=== PATIENT | female | born 1990 | race Caucasian/White ===

== ENCOUNTER 2018-10-21 13:04 | Emergency (ER) | payer OTHER ==
[~2018-10-21] VITALS: Ht 165.1 cm; Wt 96.2 kg
[2018-10-21 13:10] VITALS: BP 114/62
--- NOTE | 2018-10-21 13:35 | NUR ---
BIB SELF, C/O LOWER ABD AND VAGINAL DISCOMFORT. PT STATES SHE WAS EXPOSED TO [place] X1 MONTH AGO. PAIN 0/10. DENIES VAGINAL BLEEDING OR DISCHARGE. DENIES N/V. MILD DIARRHEA [id number]. DENIES BLOOD IN STOOL OR URINE. URINE IS YELLOW AND CLEAR. LMP 18. PT STATES TO HAVE HAD A FEVER LAST NIGHT. NO FEVER PRESENT AT THIS TIME. ER DR MADE AWARE OF PT STATUS. PT IN BED IN GOWN; BED IN LOWER LOCKED POSITION; BEDRAILS UP X1. HX: DENIES RX: DENIES
[2018-10-21] MEDS ORDERED: cefTRIAXone 250 MG VIAL ONE (13:49)
[2018-10-21 13:59] LABS: APPEARANCE,URINE SL CLOUDY (CLEAR); BILIRUBIN,URINE NEGATIVE (NEGATIVE); BLOOD, URINE NEGATIVE (NEGATIVE); COLOR,URINE YELLOW (YELLOW); LEUKOCYTE ESTERASE ,URINE TRACE (NEGATIVE); NITRITE, URINE NEGATIVE (NEGATIVE); UGLUCOSE NEGATIVE (NEGATIVE)
[2018-10-21 14:26] LABS: RBC,URINE NONE SEEN /HPF (0-5); WBC,URINE 0-5 (RARE) /HPF (0-5)
[2018-10-21 15:16] VITALS: BP 118/71
--- NOTE | 2018-10-21 15:16 | NUR ---
Patient discharged with v/s stable. Written and verbal after care instructions given and explained. Patient alert, oriented and verbalized understanding of instructions. Ambulatory with steady gait. All questions addressed prior to discharge. ID band removed. Patient advised to follow up with PMD. Rx of TESSALON, DOXYCYCLINE & CLARITIN-D given. Patient educated on indication of medication including possible reaction and side effects. Opportunity to ask questions provided and answered.
[2018-10-23 06:18] LABS: CHLAMYDIA TRACHOMATIS AMP DNA Negative (Negative)
== END 2018-10-21 15:16 | disposition home or self-care (01) ==
LOC: MED 13:04
DX: B34.9 Viral infection, unspecified (principal); A74.9 Chlamydial infection, unspecified
CPT/HCPCS: 36415; 81001; 81025; 87491; 87804; 96365; 99283; J0696; J7060

== ENCOUNTER 2020-03-16 06:35 | Inpatient (IN) | payer OTHER ==
[~2020-03-16] VITALS: Ht 165.1 cm; Wt 108.9 kg
[2020-03-16] MEDS ORDERED: LACTATED RINGERS 1,000 ML IV SCH (06:56)
[2020-03-16] MEDS ORDERED: PROMETHAZINE 25 MG/ML VIAL IVP PRN (07:00)
[2020-03-16] MEDS ORDERED: fentaNYL 0.05 MG/ML VIAL ONE (07:03)
[2020-03-16] MEDS ORDERED: OXYTOCIN 20 UNITS/LR PREMIX 1,000 ML IV ONE (07:03)
[2020-03-16] MEDS ORDERED: LIDOCAINE 1% 500 MG/50 ML VIAL ONE (07:04)
[2020-03-16] MEDS ORDERED: fentaNYL 0.05 MG/ML VIAL IVP ONE (07:05)
[2020-03-16] MEDS ORDERED: OXYTOCIN 20 UNITS in LACTATED RINGERS 1,000 ML IV SCH (07:05)
[2020-03-16] MEDS ORDERED: LIDOCAINE MPF 1% 10 MG/ML VIAL INJ SCH (07:05)
[2020-03-16] MEDS ORDERED: oxyCODONE/APAP 5/325 MG 1 TAB TAB PO PRN (07:20)
[2020-03-16] MEDS ORDERED: SODIUM PHOSPHATE 118 ML ENEM RC PRN (07:20)
[2020-03-16] MEDS ORDERED: METHYLERGONOVINE 0.2 MG/ML AMP IM PRN (07:20)
[2020-03-16] MEDS ORDERED: OXYTOCIN 10 UNITS/ML VIAL IM PRN (07:20)
[2020-03-16] MEDS ORDERED: HYDROcodone/APAP 5/325 MG 1 TAB TAB PO PRN (07:20)
[2020-03-16] MEDS ORDERED: METHYLERGONOVINE 0.2 MG TAB PO PRN (07:20)
[2020-03-16] MEDS ORDERED: TEMAZEPAM 15 MG CAP PO PRN (07:20)
[2020-03-16] MEDS ORDERED: BENZOCAINE/MENTHOL 20%-0.5% 60 GM CAN TP PRN (07:20)
[2020-03-16] MEDS ORDERED: IBUPROFEN 800 MG TAB PO PRN (07:20)
[2020-03-16 07:25] LABS: BASOPHILS # (AUTO) 0.1 K/uL (0.00-0.22); BASOPHILS % (AUTO) 0.4 % (0.0-2.0); EOSINOPHILS % (AUTO) 0.1 % (0.0-4.0); HEMATOCRIT 36.4 % (36-48); LYMPHOCYTES # (AUTO) 2.5 K/uL (2.5-16.5); LYMPHOCYTES % (AUTO) 18.1 % (20.5-51.1); MEAN CORPUSCULAR HEMOGLOBIN 25 pg (27-31); MEAN CORPUSCULAR HGB CONC 33 g/dL (33-37); MONOCYTES # (AUTO) 0.5 K/uL (0.8-1.0); MONOCYTES % (AUTO) 3.8 % (1.7-9.3); NEUTROPHILS # (AUTO) 10.5 K/uL (1.8-7.7); NEUTROPHILS % (AUTO) 77.6 % (42.2-75.2); PLATELET COUNT (AUTO) 349 K/uL (140-450); RED BLOOD CELL COUNT(AUTO) 4.78 MIL/uL (4.20-5.40); RED CELL DISTRIBUTION WIDTH 18.7 % (11.6-13.7); WHITE BLOOD COUNT (AUTO) 13.6 K/uL (4.8-10.8)
[2020-03-16 07:52] LABS: ALBUMIN 2.6 g/dL (3.4-5.0); ANION GAP 18.2 (8-16); CARBON DIOXIDE 19.6 mmol/L (21-32); CREATININE 0.8 mg/dL (0.6-1.3); POTASSIUM 3.8 mmol/L (3.5-5.1); TOTAL BILIRUBIN 0.5 mg/dL (0.0-1.0)
--- NOTE | 2020-03-16 08:39 | NUR ---
PATIENT HAS BEEN SCREENED AND CATEGORIZED LOW NUTRITION RISK. PATIENT WILL BE SEEN WITHIN 7 DAYS OF ADMISSION. 03/22/[address]
[2020-03-16 08:59] VITALS: BP 127/61
[2020-03-16 09:30] LABS: APPEARANCE,URINE CLEAR (CLEAR); BILIRUBIN,URINE NEGATIVE (NEGATIVE); BLOOD, URINE 1+ (NEGATIVE); COLOR,URINE YELLOW (YELLOW); LEUKOCYTE ESTERASE ,URINE NEGATIVE (NEGATIVE); NITRITE, URINE NEGATIVE (NEGATIVE); UGLUCOSE NEGATIVE (NEGATIVE)
[2020-03-16 10:25] LABS: WBC,URINE 0-5 /HPF (0-5)
[2020-03-16] MEDS ORDERED: DOCUSATE SOD/SENNA 50/8.6 MG 1 TAB PO SCH (21:00)
[2020-03-17 06:17] LABS: HEMOGLOBIN 9.3 g/dL (12.0-16.0)
== END 2020-03-17 17:15 | disposition home or self-care (01) | DRG 560 ==
LOC: MFCC 06:35
PROVIDERS: ADMIT Obstetrics & Gynecology; ATTEND Obstetrics & Gynecology
PROC: 10E0XZZ Delivery of Products of Conception, External Approach (ICD-10-PCS; principal; 2020-03-16)
DX: O80 Encounter for full-term uncomplicated delivery (principal); R71.0 Precipitous drop in hematocrit; Z37.0 Single live birth; Z3A.40 40 weeks gestation of pregnancy
CPT/HCPCS: 36415; 59409; 80053; 81001; 85018; 85025; 86592; 86886; 86900; 86901; J2001; J2590; J3010

== ENCOUNTER 2022-02-05 19:40 | Emergency (ER) | payer OTHER ==
[~2022-02-05] VITALS: Ht 165.1 cm; Wt 106.1 kg
[2022-02-05 19:52] VITALS: BP 106/66
--- NOTE | 2022-02-05 20:15 | NUR ---
Patient ambulated to bed 3.
--- NOTE | 2022-02-05 20:19 | NUR ---
Dr. Alvarado at bedside to exam patient.
--- NOTE | 2022-02-05 20:20 | NUR ---
Patient BIB by family from home. C/O lower back pain x 6 days. Patient reported, had lower back pain since 02/01/22, denies injury or trauma. Patient states " possible relate with her gain weight". A/O,X4, lower back pain, radiate to abdominal pain, no nause, vomiting or diarrhea.
[2022-02-05] MEDS ORDERED: CYCLOBENZAPRINE 10 MG TAB PO ONE (20:45)
[2022-02-05] MEDS ORDERED: KETOROLAC 30 MG/ML VIAL IM ONE (20:45)
[2022-02-05] MEDS ORDERED: IBUP-2213 PO (20:48)
[2022-02-05] MEDS ORDERED: CYCL-711 PO (20:48)
[2022-02-05] MEDS ORDERED: LID5T TP (20:48)
[2022-02-05 21:05] VITALS: BP 106/66
--- NOTE | 2022-02-05 21:05 | NUR ---
Patient discharged with v/s stable. Written and verbal after care instructions given and explained. Patient alert, oriented and verbalized understanding of instructions. Ambulatory with steady gait. All questions addressed prior to discharge. ID band removed. Patient advised to follow up with PMD. Rx of Flexeril, Ibuprofen and Lidocaine patch given. Patient educated on indication of medication including possible reaction and side effects. Opportunity to ask questions provided and answered.
[2022-02-06] MEDS ORDERED: LIDOCAINE 5% 1 EA PATCH TP SCH (09:00)
== END 2022-02-05 21:05 | disposition home or self-care (01) ==
LOC: MED 19:40
DX: M54.31 Sciatica, right side (principal); Z79.899 Other long term (current) drug therapy
CPT/HCPCS: 81002; 81025; 96372; 99283; J1885

== ENCOUNTER 2022-03-22 08:32 | Emergency (ER) | payer OTHER ==
[~2022-03-22] VITALS: Ht 165.1 cm; Wt 108.9 kg
[~2022-03-22 08:32] MED LIST: CYCL-711 PO; IBUP-2213 PO; LID5T TP
[2022-03-22 08:37] VITALS: BP 112/54
--- NOTE | 2022-03-22 08:40 | NUR ---
PT TO LOBBY VIA W/C.
--- NOTE | 2022-03-22 09:00 | NUR ---
31 Y/O FEMALE W/C ASSISTED C/O RIGHT LEG PAIN 8/ S/P FALL X1DAY. DENIES FEVER/CHILLS. DENIES N/V/D. DENEIS RX PRIOR TO ARRIVAL. DENIES HEAD INJURY. PT ALERT AND ORIENTED X4. PMH:DENIES NKA
[2022-03-22] MEDS ORDERED: ACETAMINOPHEN EXTRA STRENGTH 500 MG TAB PO ONE (09:50)
--- NOTE | 2022-03-22 11:23 | NUR ---
PT R LOWER LEG PLACED IN POSTERIOR SHORT LEG SPLINT PER MD AND WRAPPED IN DERRELL BANDAGE. + CMS AFTER APPLICATION. PT ALSO GIVEN CRUTCHES AND WAS INSTRUCTED ON HOW TO USE THEM. PT SHOWN DEMONSTRATION ON HOW TO USE THEM AND ADJUST HEIGHT, AND ARM HEIGHT.
[2022-03-22] MEDS ORDERED: ACET-10509 PO (11:43)
[2022-03-22 11:55] VITALS: BP 107/61
--- NOTE | 2022-03-22 12:02 | NUR ---
Patient discharged with v/s stable. Written and verbal after care instructions given and explained. Patient alert, oriented and verbalized understanding of instructions. Ambulatory with steady gait. All questions addressed prior to discharge. ID band removed. Patient advised to follow up with PMD. Rx of TYLENOL EXTRA STRENGTH given. Patient educated on indication of medication including possible reaction and side effects. Opportunity to ask questions provided and answered.
== END 2022-03-22 12:02 | disposition home or self-care (01) ==
LOC: MED 08:32
DX: S93.401A Sprain of unspecified ligament of right ankle, initial encounter (principal); Z79.899 Other long term (current) drug therapy; Z79.1 Long term (current) use of non-steroidal anti-inflammatories (NSAID); W10.8XXA Fall (on) (from) other stairs and steps, initial encounter; Y92.89 Other specified places as the place of occurrence of the external cause; Y93.01 Activity, walking, marching and hiking; Y99.8 Other external cause status
CPT/HCPCS: 29515; 73610; 81002; 81025; 99283

== ENCOUNTER 2023-08-28 13:11 | Emergency (ER) | payer OTHER ==
[~2023-08-28] VITALS: Ht 165.1 cm; Wt 105.7 kg
[~2023-08-28 13:11] MED LIST changes: +ACET-10509 PO
[2023-08-28 13:47] VITALS: BP 114/57; PULSE 63; RESP 18; TEMP 97.6; O2SAT 100
== END 2023-08-28 14:47 | disposition home or self-care (01) ==
LOC: MED 13:11
DX: K12.1 Other forms of stomatitis (principal); Z79.899 Other long term (current) drug therapy
CPT/HCPCS: 99282